=== PATIENT | female | born 1970 | race Caucasian/White ===

== ENCOUNTER 2023-09-03 17:16 | Emergency (ER) | payer SELFPAY ==
[2023-09-03] MEDS ORDERED: Ondansetron PF 4 MG/2 ML Vial ONE (19:06)
[2023-09-03] MEDS ORDERED: Glucagon 1 MG/ML KIT ONE (19:07)
== END 2023-09-03 20:08 | disposition home or self-care (01) ==
LOC: CSHERS 17:16
DX: K22.4 Dyskinesia of esophagus (principal); K21.9 Gastro-esophageal reflux disease without esophagitis; Z87.19 Personal history of other diseases of the digestive system
CPT/HCPCS: 96374; 96375; J1611; J2405

== ENCOUNTER 2023-09-29 19:37 | Emergency (ER) | payer SELFPAY ==
[2023-09-29 20:54] LABS: #Basophils 0.1 10x3/uL (0.0-0.2); #Eosinphils 0.4 10x3/uL (0.0-0.5); #Monocytes 0.5 10x3/uL (0.0-1.1); #Neutrophils 3.7 10x3/uL (1.5-8.4); %Basophils 0.7 % (0.0-2.0); %Lymphocytes 36.4 % (18.0-47.0); %Monocytes 7.3 % (0.0-10.0); %Neutrophils 50.2 % (40.0-75.0); Hematocrit 38.2 % (34.9-44.5); Hemoglobin 12.5 g/dL (12.0-15.5); Mean Corpuscular HGB CONC 32.7 g/dL (32.0-36.0); Mean Corpuscular Hemoglobin 29.8 pg (27.0-33.0); Mean Platelet Volume 9.3 fl (7.4-10.4); Platelet Count 319 10x3/uL (150-450); RBC Distribution Width 12.4 % (11.5-14.5); White Blood Cell (WBC) Count 7.3 10x3/uL (3.5-10.5)
[2023-09-29 21:11] LABS: ALT (SGPT) 11 U/L (8-55); AST (SGOT) 18 U/L (5-34); Albumin 4.5 g/dL (3.5-5.0); Alkaline Phosphatase 64 U/L (40-110); Anion Gap 14 mmol/L (10-20); BUN (Urea Nitrogen) 18 mg/dL (9.8-20.1); Bilirubin, Total Less than 0.2 mg/dL (0.2-1.2); Calc. Creatinine Clearance 0 mL/min (70-130); Calcium 9.1 mg/dL (7.8-10.44); Carbon Dioxide 23 mmol/L (22-29); Chloride 107 mmol/L (98-107); Estimated GFR 76; Glucose 111 mg/dL (70-105); Potassium 4.4 mmol/L (3.5-5.1); Protein, Total 7.5 g/dL (6.0-8.3); Sodium 140 mmol/L (136-145)
[2023-09-29 21:17] LABS: Troponin I Less than 0.010 ng/mL (< 0.028)
== END 2023-09-29 22:41 | disposition home or self-care (01) ==
LOC: CSHERS 19:37
DX: R07.9 Chest pain, unspecified (principal); I95.9 Hypotension, unspecified; K21.9 Gastro-esophageal reflux disease without esophagitis; Z55.6 Problems related to health literacy
CPT/HCPCS: 36415; 71045; 80053; 84484; 85025; 93005